=== PATIENT | female | born 1990 | race Caucasian/White ===

== ENCOUNTER 2020-09-08 09:05 | Emergency (ER) | payer SELFPAY ==
[2020-09-08] MEDS ORDERED: TORAdol 30 mg Injection IV ONE (09:26)
[2020-09-08] MEDS ORDERED: Sodium Chloride 0.9% 1000 ML 1,000 ML IV STA (09:26)
[2020-09-08] MEDS ORDERED: Inapsine 5 MG/2 ML IV ONE (09:26)
[2020-09-08] MEDS ORDERED: BENADRYL 50 MG/ML IV ONE (09:27)
[2020-09-08] MEDS ORDERED: BENADRYL 50 MG/ML ONE (09:30)
[2020-09-08] MEDS ORDERED: TORAdol 30 mg Injection ONE (09:30)
[2020-09-08] MEDS ORDERED: Sodium Chloride 0.9% 1000 ML 1,000 ML ONE (09:30)
[2020-09-08] MEDS ORDERED: Inapsine 5 MG/2 ML ONE (09:30)
[2020-09-08 09:38] LABS: Absolute Neutrophil Ct (ANC) 8.88 (1.4-6.9); BASOPHIL % 0.2 % (0.0-0.4); Basophil (Absolute #) 0.02 (0-0.4); Eosinophil % 1.4 % (0.00-5.0); Eosinophil (Absolute #) 0.17 (0-0.5); Hematocrit 47.1 % (35-47); Hemoglobin 16.3 gm/dl (12.0-16.0); Lymphocyte (Absolute #) 2.27 (1.0-4.6); Lymphocytes % 18.3 % (24.0-44.0); Mean Corpuscular Hemoglobin 30.8 pg (26-32); Mean Corpuscular Hgb Concent. 34.6 g/dl (32-36); Mean Platelet Volume 9.6 fl (7.5-11.0); Monocyte (Absolute #) 1.08 (0.0-1.3); Monocytes % 8.7 % (0.0-12.0); Neutrophil % 71.4 % (36.0-66.0); Platelet Count 322 K/mm3 (150-450); Red Blood Count 5.29 M/mm3 (4.1-5.4); Red Cell Distribution Width 13.1 % (11.5-14.0); White Blood Count 12.4 K/mm3 (4.0-10.5)
[2020-09-08 09:43] LABS: Appearance CLOUDY (CLEAR); Bacteria MODERATE /HPF (NEGATIVE); Bilirubin NEGATIVE (NEGATIVE); Blood NEGATIVE Ery/ul (0-5); Epithelial Cells MODERATE /HPF (FEW); Glucose NEGATIVE (NEGATIVE); Hyaline Casts 0-2 /LPF (0-2); Ketones NEGATIVE (NEGATIVE); Leukocyte Esterase LARGE (NEGATIVE); Mucus SLIGHT /HPF (NEGATIVE); Nitrite NEGATIVE (NEGATIVE); Protein,Urine Dip NEGATIVE (Negative); RBC 51-100 /HPF (0-2); Specific Gravity 1.021 (1.005-1.025); Urobilinogen NEGATIVE mg/dL (0-1); WBC 26-50 /HPF (0-5)
--- NOTE | 2020-09-08 09:46 | ERPHSYRPT ---
- History of Present Illness Time Seen by Provider: 09/08/20 09:06 Historian: patient Exam Limitations: no limitations Patient Subjective Stated Complaint: pt co abd pain for 4 days getting worse, pt has pain to right quad that radiates to [place] ,no vomiting or nausea. feels like cramping pain Triage Nursing Assessment: pt alert, resp easy, face mask in place, abd soft, rubbing abd , moves all ext well, no edema Physician History: Patient has had 4 days of right lower quadrant pain. Right lower groin pain. No falls or trauma. Patient does have her tubes tied. She does not believe that she is . No other known injuries. She is unable to see her PCP. She has not tried anything to make it better or worse. Timing/Duration: day(s) (4) Activities at Onset: none Quality: burning Abdominal Pain Onset Location: RLQ Pain Radiation: periumbilical Severity of Pain-Max: mild Severity of Pain-Current: mild Modifying Factors: Improves With: lying down, movement Associated Symptoms: denies symptoms Previous symptoms: no prior history Allergies/Adverse Reactions: cephalexin [From Keflex] Allergy (Verified 09/08/20 09:22) Home Medications: No Reportable Medications [No Reported Medications] 09/08/20 [History] Hx Influenza Vaccination/Date Given: No Hx Pneumococcal Vaccination/Date Given: No Immunizations Up to Date: Yes Travel Risk - International Travel Have you traveled outside of the country in past 3 weeks: No - Coronavirus Screening Are you exhibiting any of the following symptoms?: No Close contact with a COVID-19 positive Pt in past 14-21 Days: No - Review of Systems Constitutional: No Fever, No Chills Eyes: No Symptoms Ears, Nose, & Throat: No Symptoms Respiratory: No Cough, No Dyspnea Cardiac: No Chest Pain, No Edema, No Syncope Abdominal/Gastrointestinal: Abdominal Pain (RLQ pain), No Nausea, No Vomiting, No Diarrhea Genitourinary Symptoms: No Dysuria Musculoskeletal: No Back Pain, No Neck Pain Skin: No Rash Neurological: No Dizziness, No Focal Weakness, No Sensory Changes Psychological: No Symptoms Endocrine: No Symptoms All Other Systems: Reviewed and Negative - Past Medical History Pertinent Past Medical History: No - Past Surgical History Past Surgical History: Yes Female Surgical History: Tubal Ligation - Social History Smoking Status: Current every day smoker Exposure to second hand smoke: Yes Drug Use: none Patient Lives Alone: No - Female History Hx Last Menstrual Period: last week Hx Now: No - Nursing Vital Signs Nursing Vital Signs: Initial Vital Signs Pulse Rate 78 09/08/20 10:23 Respiratory Rate 18 09/08/20 10:23 Blood Pressure 114/73 09/08/20 10:23 O2 Sat by Pulse Oximetry 95 09/08/20 10:23 Pain Scale Pain Intensity 5 - Physical Exam General Appearance: no apparent distress, alert Eye Exam: PERRL/EOMI, eyes nml inspection Ears, Nose, Throat Exam: normal ENT inspection, pharynx normal, moist mucous membranes Neck Exam: normal inspection, non-tender, supple, full range of motion Respiratory Exam: normal breath sounds, lungs clear, No respiratory distress Cardiovascular Exam: regular rate/rhythm, normal heart sounds Gastrointestinal/Abdomen Exam: soft, other (RLQ tenderness to palpation without rebound or guarding. ), No tenderness, No mass Back Exam: normal inspection, normal range of motion, No CVA tenderness, No vertebral tenderness Extremity Exam: normal inspection, normal range of motion, pelvis stable Neurologic Exam: alert, oriented x 3, cooperative, normal mood/affect, nml cerebellar function, sensation nml, No motor deficits Skin Exam: normal color, warm, dry - Course Nursing assessment & vital signs reviewed: Yes Ordered Tests: Active Orders 24 hr Category Date Time Status IV Insertion STAT Care 09/08/20 09:26 Active NPO (ED) STAT Care 09/08/20 09:26 Active ABDOMEN AND PELVIS W CONTRAST [CT] Stat Exams 09/08/20 09:27 Taken CBC W DIFF Stat Lab 09/08/20 09:26 Completed CMP Stat Lab 09/08/20 09:26 Completed CULTURE,URINE Stat Lab 09/08/20 09:29 Received HCG,QUALITATIVE URINE Stat Lab 09/08/20 10:23 Completed LIPASE Stat Lab 09/08/20 09:26 Completed UA W/RFX UR CULTURE Stat Lab 09/08/20 09:29 Completed Medication Summary Discontinued Medications Generic Name Dose Route Start Last Admin Trade Name Freq PRN Reason Stop Dose Admin Diphenhydramine HCl 25 mg 09/08/20 09:27 09/08/20 09:34 Benadryl 50 Mg/Ml IV 09/08/20 09:28 25 mg STAT ONE Administration Diphenhydramine HCl Confirm 09/08/20 09:30 Benadryl 50 Mg/Ml Administered 09/08/20 09:31 Dose 50 mg .ROUTE .STK-MED ONE Droperidol 1.25 mg 09/08/20 09:26 09/08/20 09:35 Inapsine 5 Mg/2 Ml IV 09/08/20 09:27 1.25 mg STAT ONE Administration Droperidol Confirm 09/08/20 09:30 Inapsine 5 Mg/2 Ml Administered 09/08/20 09:31 Dose 5 mg .ROUTE .STK-MED ONE Sodium Chloride 1,000 mls @ 999 mls/hr 09/08/20 09:26 09/08/20 11:05 Sodium Chloride 0.9% 1000 Ml IV 09/08/20 10:26 Infused .Q1H1M STA Infusion Sodium Chloride Confirm 09/08/20 09:30 Sodium Chloride 0.9% 1000 Ml Administered 09/08/20 09:31 Dose 1,000 mls @ ud .ROUTE .STK-MED ONE Ketorolac Tromethamine 30 mg 09/08/20 09:26 09/08/20 09:34 Toradol 30 Mg Injection IV 09/08/20 09:27 30 mg STAT ONE Administration Ketorolac Tromethamine Confirm 09/08/20 09:30 Toradol 30 Mg Injection Administered 09/08/20 09:31 Dose 30 mg .ROUTE .STK-MED ONE Lab/Rad Data: Laboratory Result Diagrams 09/08/20 09:26 09/08/20 09:26 Laboratory Results 09/08/20 09/08/20 09/08/20 Range/Units 10:23 09:29 09:26 WBC (4.0-10.5) K/mm3 RBC (4.1-5.4) M/mm3 Hgb (12.0-16.0) gm/dl Hct (35-47) % MCV (78-100) fl MCH (26-32) pg MCHC (32-36) g/dl RDW (11.5-14.0) % Plt Count (150-450) K/mm3 MPV (7.5-11.0) fl Gran % (36.0-66.0) % Eos # (Auto) (0-0.5) Absolute Lymphs (auto) (1.0-4.6) Absolute Monos (auto) (0.0-1.3) Lymphocytes % (24.0-44.0) % Monocytes % (0.0-12.0) % Eosinophils % (0.00-5.0) % Basophils % (0.0-0.4) % Absolute Granulocytes (1.4-6.9) Basophils # (0-0.4) Sodium 135 L (137-145) mmol/L Potassium 4.7 (3.5-5.1) mmol/L Chloride 107 (98-107) mmol/L Carbon Dioxide 18 L (22-30) mmol/L Anion Gap 14.4 (5-15) MEQ/L BUN 13 (7-17) mg/dL Creatinine 0.73 (0.52-1.04) mg/dL Estimated GFR > 60.0 ML/MIN Glucose 106 (74-106) mg/dL Calcium 9.8 (8.4-10.2) mg/dL Total Bilirubin 0.70 (0.2-1.3) mg/dL AST 25 (14-36) U/L ALT 13 (0-35) U/L Alkaline Phosphatase 68 (38-126) U/L Serum Total Protein 8.4 H (6.3-8.2) g/dL Albumin 4.7 (3.5-5.0) g/dL Lipase 72 (23-300) U/L Urine Color YELLOW (YELLOW) Urine Appearance CLOUDY (CLEAR) Urine pH 5.0 (5-6) Ur Specific [place] 1.021 (1.005-1.025) Urine Protein NEGATIVE (Negative) Urine Ketones NEGATIVE (NEGATIVE) Urine Blood NEGATIVE (0-5) Tarik/ul Urine Nitrite NEGATIVE (NEGATIVE) Urine Bilirubin NEGATIVE (NEGATIVE) Urine Urobilinogen NEGATIVE (0-1) mg/dL Ur Leukocyte Esterase LARGE (NEGATIVE) Urine WBC (Auto) 26-50 (0-5) /HPF Urine RBC (Auto) 51-100 (0-2) /HPF U Hyaline Cast (Auto) 0-2 (0-2) /LPF U Epithel Cells (Auto) MODERATE (FEW) /HPF Urine Bacteria (Auto) MODERATE (NEGATIVE) /HPF Urine Mucus (Auto) SLIGHT (NEGATIVE) /HPF Urine Culture Reflexed YES (NO) Urine Glucose NEGATIVE (NEGATIVE) mg/dL Urine HCG, Qual NEGATIVE (Negative) 09/08/20 Range/Units 09:26 WBC 12.4 H (4.0-10.5) K/mm3 RBC 5.29 (4.1-5.4) M/mm3 Hgb 16.3 H (12.0-16.0) gm/dl Hct 47.1 H (35-47) % MCV 89.0 (78-100) fl MCH 30.8 (26-32) pg MCHC 34.6 (32-36) g/dl RDW 13.1 (11.5-14.0) % Plt Count 322 (150-450) K/mm3 MPV 9.6 (7.5-11.0) fl Gran % 71.4 H (36.0-66.0) % Eos # (Auto) 0.17 (0-0.5) Absolute Lymphs (auto) 2.27 (1.0-4.6) Absolute Monos (auto) 1.08 (0.0-1.3) Lymphocytes % 18.3 L (24.0-44.0) % Monocytes % 8.7 (0.0-12.0) % Eosinophils % 1.4 (0.00-5.0) % Basophils % 0.2 (0.0-0.4) % Absolute Granulocytes 8.88 H (1.4-6.9) Basophils # 0.02 (0-0.4) Sodium (137-145) mmol/L Potassium (3.5-5.1) mmol/L Chloride (98-107) mmol/L Carbon Dioxide (22-30) mmol/L Anion Gap (5-15) MEQ/L BUN (7-17) mg/dL Creatinine (0.52-1.04) mg/dL Estimated GFR ML/MIN Glucose (74-106) mg/dL Calcium (8.4-10.2) mg/dL Total Bilirubin (0.2-1.3) mg/dL AST (14-36) U/L ALT (0-35) U/L Alkaline Phosphatase (38-126) U/L Serum Total Protein (6.3-8.2) g/dL Albumin (3.5-5.0) g/dL Lipase (23-300) U/L Urine Color (YELLOW) Urine Appearance (CLEAR) Urine pH (5-6) Ur Specific [place] (1.005-1.025) Urine Protein (Negative) Urine Ketones (NEGATIVE) Urine Blood (0-5) Tarik/ul Urine Nitrite (NEGATIVE) Urine Bilirubin (NEGATIVE) Urine Urobilinogen (0-1) mg/dL Ur Leukocyte Esterase (NEGATIVE) Urine WBC (Auto) (0-5) /HPF Urine RBC (Auto) (0-2) /HPF U Hyaline Cast (Auto) (0-2) /LPF U Epithel Cells (Auto) (FEW) /HPF Urine Bacteria (Auto) (NEGATIVE) /HPF Urine Mucus (Auto) (NEGATIVE) /HPF Urine Culture Reflexed (NO) Urine Glucose (NEGATIVE) mg/dL Urine HCG, Qual (Negative) - Progress Progress: improved Progress Note: 09/08/20 09:45 differential diagnosis includes kidney stone, compression fracture, infection, UTI, triple AAA - basic labs including: CBC, lipase, CMP, UA, urine preg - insert IV for fluids, pain meds, nausea control - consider imaging: CT ab/pelvis 09/08/20 11:25 Patient feels improved with medication. Labs and CT demonstrate mesenteric adenitis. We recommend follow up abdominal reexam in 24-48 hours. Patient will return here for new or changing symptoms. Plan of care was discussed with patient and all questions answered. The patient is agreeable to be discharged home and both verbal and printed discharge instructions were provided.The patient agreed to seek outpatient follow up as discussed. The patient was given strict instructions to return to the emergency department for worsening symptoms or any other emergent concerns. The patient verbalized understanding. - Departure Departure Disposition: Home Clinical Impression: Mesenteric adenitis Condition: Good Critical Care Time: No Referrals: DOCTOR,NO FAMILY [Primary Care Provider] - JULES MOLINA MD [ACTIVE STAFF] - Instructions: Acute Abdomen (Belly Pain), Adult (DC) Additional Instructions: Have abdominal reexam in 24 hours with PCP. We have given you a PCP list to follow up with.
[2020-09-08 09:50] LABS: ALBUMIN 4.7 g/dL (3.5-5.0); ALKALINE PHOSPHATASE 68 U/L (38-126); ANION GAP 14.4 MEQ/L (5-15); BLOOD UREA NITROGEN 13 mg/dL (7-17); CHLORIDE 107 mmol/L (98-107); Calcium 9.8 mg/dL (8.4-10.2); Carbon Dioxide 18 mmol/L (22-30); Creatinine 1 0.73 mg/dL (0.52-1.04); EST GLOMERULAR FILTRATION RATE > 60.0 ML/MIN; Glucose 106 mg/dL (74-106); LIPASE 72 U/L (23-300); Potassium 4.7 mmol/L (3.5-5.1); SGOT/AST 25 U/L (14-36); SGPT/ALT 13 U/L (0-35); SODIUM 135 mmol/L (137-145); Total Protein 8.4 g/dL (6.3-8.2)
[2020-09-08 11:11] VITALS: BP 119/64; PULSE 68; O2SAT 98
--- NOTE | 2020-09-08 19:54 | XRAY ---
Indication: Right lower quadrant pain. Multiple contiguous axial images obtained through the abdomen and pelvis using 80 cc Isovue 370 contrast. Comparison: None Lung bases are clear. Heart is not enlarged. Noncontrasted stomach and bowel loops appear nonobstructed. Normal appendix. Mid abdomen demonstrates scattered subcentimeter mesenteric nodes with stranding favoring adenitis. Similar small periaortic nodes, none pathologically enlarged. Tiny right adnexa free fluid presumed physiologic from rupture/leaking cyst. No free air. Gallbladder contracted without gallstones. Remaining liver, gallbladder, pancreas, spleen, adrenal glands, kidneys, ureters, bladder, uterus, and aorta appear unremarkable. Osseous structures intact. Impression: 1. Scattered small mid abdomen mesenteric nodes with stranding favoring mesenteric adenitis. 2. Tiny right adnexa free fluid presumed physiologic. 3. Remaining CT abdomen/pelvis with contrast exam is negative. Comment: Preliminary interpretation was made by [facility]. No critical discrepancy.
== END 2020-09-08 11:23 | disposition home or self-care (01) ==
LOC: ED 09:05
DX: I88.0 Nonspecific mesenteric lymphadenitis (principal)
CPT/HCPCS: 36000; 36415; 74177; 80053; 81001; 83690; 84703; 85025; 87086; 96360; 96374; 96375; 99284; J1200; J1885